=== PATIENT | male | born 1990 | race Hispanic/Latino ===

== ENCOUNTER 2017-12-07 20:28 | Emergency (ER) | payer MEDICAID, OTHER ==
[2017-12-07 21:52] VITALS: O2SAT 98
--- NOTE | 2017-12-07 22:12 | C.PDOC ---
History Of Present Illness 27yo male, presents to ED with complaints of feeling dizzy. He states 2 months ago, he was evaluated at [facility] in [place] for similar complaints and was diagnosed with hypertension, given prescriptions which he did not fill. Patient states he was dizzy earlier today and wants his blood pressure "checked out." He denies any chest pain, palpitation, headaches and states he is not currently dizzy. He has no other medical complaints. Time Seen by Provider: 12/07/17 21:59 Chief Complaint (Nursing): High Blood Pressure History Per: Patient History/Exam Limitations: no limitations Current Symptoms Are (Timing): Gone Associated Symptoms: Dizziness. denies: Chest Pain, Headache Past Medical History Reviewed: Historical Data, Nursing Documentation, Vital Signs Vital Signs: Last Vital Signs Temp 98.5 F 12/07/17 20:43 Pulse 66 12/07/17 21:44 Resp 16 12/07/17 21:44 BP 152/101 H 12/07/17 21:44 Pulse Ox 98 12/07/17 22:13 - Medical History PMH: No Chronic Diseases Surgical History: No Surg Hx Family History: States: Unknown Family Hx - Social History Hx Alcohol Use: Yes Hx Substance Use: No - Immunization History Hx Tetanus Toxoid Vaccination: No Hx Influenza Vaccination: No Hx Pneumococcal Vaccination: No Review Of Systems Except As Marked, All Systems Reviewed And Found Negative. Constitutional: Negative for: Fever, Chills Cardiovascular: Negative for: Chest Pain, Palpitations Respiratory: Negative for: Shortness of Breath Neurological: Positive for: Dizziness (now resolved) Physical Exam - Physical Exam Appears: Non-toxic, No Acute Distress Skin: Normal Color, Warm, Dry Head: Atraumatic, Normacephalic Eye(s): bilateral: Normal Inspection, PERRL Neck: Normal ROM, Supple Chest: Symmetrical, No Tenderness Cardiovascular: Rhythm Regular Respiratory: Normal Breath Sounds Gastrointestinal/Abdominal: Normal Exam, Soft, No Tenderness Extremity: Normal ROM Neurological/Psych: Oriented x3 ED Course And Treatment ECG: Interpreted By Me ECG Rhythm: Sinus Rhythm Interpretation Of ECG: LVH Rate From EC O2 Sat by Pulse Oximetry: 98 (RA) Pulse Ox Interpretation: Normal Progress Note: Patient is currently refusing any medical work up 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 He will follow up in the clinic as an out patient. Reevaluation Time: 22:29 Reassessment Condition: Improved Medical Decision Making Medical Decision Making: Impression: Dizziness in setting of recent diagnosis of hypertension Plan: -- Patient refusing labs and ER workup, and only wants his blood pressure to be checked. Patient given 0.1mg clonodine PO and will be discharged home with prescriptions and follow up instructions. Disposition Counseled Patient/Family Regarding: Studies Performed, Diagnosis, Need For Followup - Disposition Referrals: [facility] at [facility] [Outside] Disposition: HOME/ ROUTINE Disposition Time: 22:29 Condition: IMPROVED Prescriptions: Lisinopril [Zestril] 10 mg PO DAILY #30 tab Instructions: High Blood Pressure in Adults Forms: [employer] (Latvian) - Clinical Impression Clinical Impression: Hypertension - Scribe Statement The provider has reviewed the documentation as recorded by the Scribe (Janett Angelo) Provider Attestation: All medical record entries made by the Scribe were at my direction and personally dictated by me. I have reviewed the chart and agree that the record accurately reflects my personal performance of the history, physical exam, medical decision making, and the department course for this patient. I have also personally directed, reviewed, and agree with the discharge instructions and disposition.
[2017-12-07 23:01] VITALS: BP 176/100; PULSE 80; RESP 18; TEMP 98.1
--- NOTE | 2017-12-08 11:45 | CARD ---
APPROVED REPORT EKG Measurement Heart [id number] <Conclusion> Normal sinus rhythm Voltage criteria for left ventricular hypertrophy Abnormal ECG
== END 2017-12-07 23:03 | disposition home or self-care (01) ==
LOC: C.ER 20:28
DX: I10 Essential (primary) hypertension (principal); F17.210 Nicotine dependence, cigarettes, uncomplicated

== ENCOUNTER 2018-01-10 19:27 | Emergency (ER) | payer MEDICAID ==
[2018-01-10 19:44] VITALS: BP 176/105; PULSE 74; RESP 18; TEMP 98.9; O2SAT 99
--- NOTE | 2018-01-10 20:58 | C.PDOC ---
History Of Present Illness 27 year old male presents to the ER requesting an Rx for his HTN medications. Patient has a Hx of elevated blood pressure for the past few months. He was seen on 12/07/17 and given Rx for HTN medication, however, patient did not fill the Rx as he was incarcerated promptly following his visit, he returns now requesting another Rx. Denies chest pain, SOB, headache, weakness, visual c/o or dizziness. Time Seen by Provider: 01/10/18 20:11 Chief Complaint (Nursing): High Blood Pressure History Per: Patient History/Exam Limitations: no limitations Onset/Duration Of Symptoms: Days Current Symptoms Are (Timing): Still Present Associated Symptoms: denies: Chest Pain, Dyspnea, Dizziness, Blurred Vision, Focal Weakness, Headache Quality Of Symptoms: Asymptomatic Recent travel outside of the [place]: No Past Medical History Reviewed: Historical Data, Nursing Documentation, Vital Signs Vital Signs: Last Vital Signs Temp 98.9 F 01/10/18 19:40 Pulse 74 01/10/18 19:40 Resp 18 01/10/18 19:40 BP 176/105 H 01/10/18 21:04 Pulse Ox 99 01/10/18 22:07 - Medical History PMH: HTN Family History: States: Unknown Family Hx - Social History Hx Alcohol Use: Yes Hx Substance Use: No - Immunization History Hx Tetanus Toxoid Vaccination: No Hx Influenza Vaccination: No Hx Pneumococcal Vaccination: No Review Of Systems Constitutional: Negative for: Fever, Chills Cardiovascular: Negative for: Chest Pain Respiratory: Negative for: Shortness of Breath Neurological: Negative for: Headache, Dizziness Physical Exam - Physical Exam Appears: Non-toxic Skin: Normal Color, Warm, Dry Head: Atraumatic, Normacephalic Eye(s): bilateral: Normal Inspection Oral Mucosa: Moist Chest: Symmetrical, No Tenderness Cardiovascular: Rhythm Regular Respiratory: Normal Breath Sounds, No Rales, No Rhonchi, No Wheezing Neurological/Psych: Oriented x3, Normal Speech ED Course And Treatment O2 Sat by Pulse Oximetry: 99 (room air) Pulse Ox Interpretation: Normal Progress Note: Patient found to have elevated blood pressure in the ER, norvasc administered. Patient is resting comfortably in the ER in no distress or pain, vitals are stable, patient was educated on the risks of HTN and advised to follow up at the clinic for further management. Disposition Counseled Patient/Family Regarding: Diagnosis, Need For Followup, Rx Given - Disposition Referrals: Non [facility] Provider, [Primary Care Provider] - Disposition: HOME/ ROUTINE Disposition Time: 20:55 Condition: STABLE Additional Instructions: Please fill out prescriptions Please follow up in clinic REturn to ER if worse Prescriptions: amLODIPine [Norvasc] 5 mg PO DAILY #30 tab Instructions: High Blood Pressure (DC) Forms: [employer] (Kyrgyz) - Clinical Impression Clinical Impression: Elevated blood pressure reading - PA / RESIDENTIAL ADVISOR / Resident Statement MD/DO has reviewed & agrees with the documentation as recorded. - Scribe Statement The provider has reviewed the documentation as recorded by the Scribcristin Alejandre All medical record entries made by the Juany were at my direction and personally dictated by me. I have reviewed the chart and agree that the record accurately reflects my personal performance of the history, physical exam, medical decision making, and the department course for this patient. I have also personally directed, reviewed, and agree with the discharge instructions and disposition.
== END 2018-01-10 21:10 | disposition home or self-care (01) ==
LOC: C.ER 19:27 → SUPCPDRO 19:27 → C.ER 21:10
DX: I10 Essential (primary) hypertension (principal)

== ENCOUNTER 2018-08-15 10:15 | Emergency (ER) | payer MEDICAID ==
[2018-08-15 10:25] VITALS: BP 154/93; PULSE 82; RESP 20; TEMP 98.1; O2SAT 97
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
== END 2018-08-15 11:32 | disposition home or self-care (01) ==
LOC: C.ER 10:15
DX: M54.5 Low back pain (principal); I10 Essential (primary) hypertension

== ENCOUNTER 2018-10-10 14:30 | Emergency (ER) | payer MEDICAID ==
[2018-10-10] MEDS ORDERED: Sodium Chloride 0.9% 500 ML IV ONE (17:24)
--- NOTE | 2018-10-10 17:27 | C.PDOC ---
History Of Present Illness 28 y/o male presents to the ER complaining of vomiting which has been present since yesterday. Patient states that he was drinking ETOH 2 days ago. Patient denies having fever,chills, CP,SOB, abdominal pain, and diarrhea. Of note, patient has prescribed bp medications and he is non-compliant. Time Seen by Provider: 10/10/18 16:04 Chief Complaint (Nursing): GI Problem History Per: Patient History/Exam Limitations: no limitations Onset/Duration Of Symptoms: Days Current Symptoms Are (Timing): Still Present Severity: Moderate Past Medical History Reviewed: Historical Data, Nursing Documentation, Vital Signs Vital Signs: Last Vital Signs Temp 98 F 10/10/18 14:53 Pulse 93 H 10/10/18 14:53 Resp 16 10/10/18 14:53 BP 166/107 H 10/10/18 14:53 Pulse Ox 95 10/10/18 14:53 - Medical History PMH: HTN Surgical History: No Surg Hx Family History: States: No Known Family Hx - Social History Hx Alcohol Use: Yes Hx Substance Use: No - Immunization History Hx Tetanus Toxoid Vaccination: No Hx Influenza Vaccination: No Hx Pneumococcal Vaccination: No Review Of Systems Except As Marked, All Systems Reviewed And Found Negative. Constitutional: Negative for: Fever, Chills Cardiovascular: Negative for: Chest Pain Respiratory: Negative for: Shortness of Breath Gastrointestinal: Positive for: Vomiting. Negative for: Abdominal Pain Genitourinary: Negative for: Dysuria, Hematuria Physical Exam - Physical Exam Appears: Non-toxic, No Acute Distress Skin: Normal Color, Warm, Dry Head: Atraumatic, Normacephalic Eye(s): bilateral: Normal Inspection Nose: Normal Oral Mucosa: Moist Neck: Supple Chest: Symmetrical Cardiovascular: Rhythm Regular Respiratory: Normal Breath Sounds, No Rales, No Rhonchi, No Wheezing Gastrointestinal/Abdominal: Normal Exam, Soft, No Tenderness, No Guarding, No Rebound Neurological/Psych: Oriented x3, Normal Speech ED Course And Treatment O2 Sat by Pulse Oximetry: 95 (RA) Pulse Ox Interpretation: Normal Medical Decision Making Medical Decision Making: Plan: --Norvasc PO --IV Fluids Updates: Pt re-eval. Pt states feeling much better. Denies any abd pain, n/v, or any other complaints at this time. Abd re-examined: Soft, NTTP, benign. Pt eating meal. Understands and agrees to immediately return to ER if increasing pain, vomiting, fevers, or any other concerning, worsening, new or continued sxs. Otherwise, states will f/u with PCP in 1-2 days. Patient is aware that early disease may be missed by CT and to return in [facility] for re-evaluation if any continued, worsening, new or continued symptoms. Patient states feeling better and would like to go home. Patient is very well appearing and non-toxic. Vital signs are stable. I discussed the diagnosis and treatment. Written discharge instructions were provided to patient. Additional verbal instructions were given and discussed with patient. We discussed the importance of follow up with PCP/consultants. I also reiterated reasons to immediately return to the ER including: worsening in current symptoms and/or new, continued, or concerning symptoms. Pt understood and agreed. Disposition Counseled Patient/Family Regarding: Diagnosis, Need For Followup - Disposition Referrals: [facility] [Outside] [facility] [Outside] Aaron Cadena MD [Staff Provider] - Disposition: HOME/ ROUTINE Disposition Time: 17:26 Condition: STABLE Additional Instructions: FABRIZIO GROVE, thank you for letting us take care of you today. Your provider was Carie Graham MD and you were treated for VOMITING. The emergency medical care you received today was directed at your acute symptoms. If you were prescribed any medication, please fill it and take as directed. It may take several days for your symptoms to resolve. Return to the Emergency Department if your symptoms worsen, do not improve, or if you have any other problems. Please contact your doctor or call one of the physicians/clinics you have been referred to that are listed on the Patient Visit Information form that is included in your discharge packet. Bring any paperwork you were given at discharge with you along with any medications you are taking to your follow up visit. Our treatment cannot replace ongoing medical care by a primary care provider outside of the emergency department. Thank you for allowing the [facility] team to be part of your care today. Instructions: Clear Liquid Diet, High Blood Pressure (DC), Nausea and Vomiting, Adult (DC), Gastritis (DC) Forms: [employer] (Japanese), General Discharge Instructions - POA Present On Arrival: None - Clinical Impression Clinical Impression: Vomiting, Hypertension, Noncompliance with medications, Gastritis - Scribe Statement The provider has reviewed the documentation as recorded by the Angelinaibe Radha Garcia Provider Attestation: All medical record entries made by the Scribe were at my direction and personally dictated by me. I have reviewed the chart and agree that the record accurately reflects my personal performance of the history, physical exam, medical decision making, and the department course for this patient. I have also personally directed, reviewed, and agree with the discharge instructions and disposition.
[2018-10-10 18:19] VITALS: BP 156/102; PULSE 84; RESP 18; TEMP 98.7
[2018-10-11 10:38] VITALS: O2SAT 95
== END 2018-10-10 19:20 | disposition home or self-care (01) ==
LOC: C.ER 14:30
DX: K29.70 Gastritis, unspecified, without bleeding (principal); I10 Essential (primary) hypertension; R11.10 Vomiting, unspecified; Z91.14 Patient's other noncompliance with medication regimen
CPT/HCPCS: 99284; J7040

== ENCOUNTER 2018-11-07 17:22 | Emergency (ER) | payer MEDICAID ==
[2018-11-07 17:40] VITALS: BMI 21.7
[2018-11-07 17:44] VITALS: RESP 18; TEMP 98.7
--- NOTE | 2018-11-07 18:08 | C.PDOC ---
History Of Present Illness 28 year old male presents to ED requesting refill for his hypertension medication. Patient states that he ran out and did not refill his hypertension medication for the past 3 months. Patient would like to restart his hypertension medication. Patient denies recent illness, headache, dizziness, chest pain, SOB, nausea, vomiting, and abdominal pain. Time Seen by Provider: 11/07/18 17:55 Chief Complaint (Nursing): Med Refill History Per: Patient History/Exam Limitations: no limitations Onset/Duration Of Symptoms: Other (requesting refill) Past Medical History Reviewed: Historical Data, Nursing Documentation, Vital Signs Vital Signs: Last Vital Signs Temp 98.7 F 11/07/18 17:44 Pulse 72 11/07/18 17:44 Resp 18 11/07/18 17:44 BP 175/96 H 11/07/18 17:44 Pulse Ox 99 11/07/18 17:44 - Medical History PMH: HTN Surgical History: No Surg Hx Family History: States: Unknown Family Hx - Social History Hx Alcohol Use: Yes Hx Substance Use: No - Immunization History Hx Tetanus Toxoid Vaccination: No Hx Influenza Vaccination: No Hx Pneumococcal Vaccination: No Review Of Systems Constitutional: Negative for: Fever, Chills, Weakness Cardiovascular: Negative for: Chest Pain Respiratory: Negative for: Shortness of Breath Gastrointestinal: Negative for: Nausea, Vomiting, Abdominal Pain Neurological: Negative for: Weakness, Numbness, Headache, Dizziness Physical Exam - Physical Exam Appears: Well, Non-toxic, No Acute Distress Skin: Normal Color, Warm, Dry Head: Atraumatic, Normacephalic Eye(s): bilateral: Normal Inspection, PERRL Ear(s): Bilateral: Normal Nose: No Discharge Oral Mucosa: Moist Tongue: Normal Appearing Lips: Normal Appearing Throat: No Erythema, No Exudate Neck: Normal ROM, Supple Chest: Symmetrical, No Deformity Cardiovascular: Rhythm Regular, No Murmur Respiratory: Normal Breath Sounds, No Accessory Muscle Use, No Rales, No Rhonchi, No Wheezing Gastrointestinal/Abdominal: Soft, No Tenderness Extremity: No Pedal Edema, No Calf Tenderness, No Swelling Extremity: Bilateral: Atraumatic Neurological/Psych: Oriented x3, Normal Speech, Normal Cognition, Normal Motor, Normal Sensation Gait: Steady ED Course And Treatment O2 Sat by Pulse Oximetry: 99 (in RA) Medical Decision Making Medical Decision Making: Impression: 28 year old male presents to ED requesting refill for his hyperte nsion medication. Plan: Patient given Norvasc PO and BP lowered to 160/98 Advised patient on strict compliance on meds and lifestyle changes patient to follow up in clinic Discussed plan with patient who expresses understanding. All questions answered and there is agreement with the plan to discharge home with instructions. Patient stable for discharge. Return if symptoms persist or worsen. Disposition Counseled Patient/Family Regarding: Diagnosis, Need For Followup, Rx Given, Smoking Cessation - Disposition Referrals: [facility] [Outside] Disposition: HOME/ ROUTINE Disposition Time: 19:00 Condition: IMPROVED Additional Instructions: FABRIZIO GROVE, thank you for letting us take care of you today. Continue Norvasc daily for high blood pressure Please review the discharge handout instructions given to today regarding lifestyle changes and diet Follow up in Clinic in 1-2 days Return to ED if symptoms worsen Prescriptions: amLODIPine [Norvasc] 5 mg PO DAILY #30 tab Instructions: High Blood Pressure in Adults, DASH Diet, Low Salt Diet, Controlling Your Blood Pressure Through Lifestyle Forms: [employer] (Russian) - Clinical Impression Clinical Impression: Noncompliance with medications, HTN (hypertension) - PA / SPECIAL CLASS WELDER / Resident Statement MD/DO has reviewed & agrees with the documentation as recorded. (Jannie Aguirre) - Scribe Statement The provider has reviewed the documentation as recorded by the Scribe (Jannie Aguirre) All medical record entries made by the Scribe were at my direction and personally dictated by me. I have reviewed the chart and agree that the record accurately reflects my personal performance of the history, physical exam, medical decision making, and the department course for this patient. I have also personally directed, reviewed, and agree with the discharge instructions and disposition.
[2018-11-07 18:44] VITALS: BP 160/98; PULSE 73
[2018-11-07 19:06] VITALS: O2SAT 99
== END 2018-11-07 19:07 | disposition home or self-care (01) ==
LOC: C.ER 17:22
DX: I10 Essential (primary) hypertension (principal); Z91.14 Patient's other noncompliance with medication regimen

== ENCOUNTER 2018-12-14 13:19 | Emergency (ER) | payer SELFPAY ==
[2018-12-14 13:19] VITALS: BMI 21.7
[2018-12-14 13:38] VITALS: BP 171/107; PULSE 86; RESP 16; TEMP 99.3; O2SAT 100
--- NOTE | 2018-12-14 13:45 | C.PDOC ---
History Of Present Illness 28 year old male presents to the ED with complaint of itching to the left buttock for the past 2 days. Patient is s/p a spontaneous abscess drainage that occurred 2 days ago. Patient had a left buttock abscess for 1 week. Patient states that he now feels better, but still has residual itch to the area. He states that there has been no improvement with exfoliation. Patient denies redness, swelling, discharge, numbness, or weakness to the afflicted area. CO ITCH L BUTTOCK X 2 DAYS. S/P SPONTANEOUS ABSCESS DRAINAGE 2 DAYS AGO, HAD L BUTTOCK ABSCESS X 1 WEEK. NOW FEELS BETTER, STILL W RESIDUAL ITCH TO AREA. NO REDNESS, SWELL, DC, OTHER ASSOC SX. NO IMPROVE W EXFOLIATION. EXAM NONTOXIC SKIN L BUTTOCK EXFOL SKIN; PUNCTATE SCAB WOUND NO FOCAL FLUCTUANCE, ERYTHEMA, DC, TEND. MIN LOCAL INDURATION. REMAINDER NEG MDM S/P SPONT DRAINAGE ABSCESS NOW W RESIDUAL SKIN IRRITATION. NO SIGNS INFXN. TOPICAL STEROID, CALAMINE, PMD FU Time Seen by Provider: 12/14/18 13:36 Chief Complaint (Nursing): Abnormal Skin Integrity History Per: Patient History/Exam Limitations: no limitations Onset/Duration Of Symptoms: Days (2) Current Symptoms Are (Timing): Still Present Quality Of Symptoms: Itching. denies: Painful, Swollen, Draining Past Medical History Reviewed: Historical Data, Nursing Documentation, Vital Signs Vital Signs: Last Vital Signs Temp 99.3 F 12/14/18 13:28 Pulse 86 12/14/18 13:28 Resp 16 12/14/18 13:28 BP 171/107 H 12/14/18 13:28 Pulse Ox 100 12/14/18 13:28 Primary Care Provider: FAMILY PROVIDER,NO - Medical History PMH: HTN Surgical History: No Surg Hx Family History: States: Unknown Family Hx - Social History Hx Alcohol Use: Yes Hx Substance Use: No - Immunization History Hx Tetanus Toxoid Vaccination: No Hx Influenza Vaccination: No Hx Pneumococcal Vaccination: No Review Of Systems Except As Marked, All Systems Reviewed And Found Negative. Skin: Positive for: Other (itching to the left buttock ) Physical Exam - Physical Exam Appears: Non-toxic, No Acute Distress Skin: Other (left buttock exfoliated, punctate scab, no focal fluctuance, no erythema, discharge, or tenderness, minimal localized induration) Head: Atraumatic, Normacephalic Neck: Normal ROM, Supple Chest: Symmetrical, No Deformity Cardiovascular: Rhythm Regular, No Murmur Respiratory: No Accessory Muscle Use, No Rales, No Rhonchi, No Wheezing Gastrointestinal/Abdominal: Soft, No Tenderness Extremity: Capillary Refill (<2 seconds) Extremity: Bilateral: Atraumatic, Normal Color And Temperature, Normal ROM Pulses: Left Radial: Normal, Right Radial: Normal Neurological/Psych: Oriented x3, Normal Speech, Normal Cognition ED Course And Treatment O2 Sat by Pulse Oximetry: 100 (in RA) Pulse Ox Interpretation: Normal Medical Decision Making Medical Decision Making: S/p spontaneous drainage of abscess now with residual skin irritation. Shows no signs of infection. Patient given a topical steroid, calamine lotion, and PMD follow up. Disposition Counseled Patient/Family Regarding: Diagnosis, Need For Followup, Rx Given - Disposition Referrals: [facility] [Outside] [facility] [Outside] [facility] [Other] Disposition: HOME/ ROUTINE Disposition Time: 13:42 Condition: IMPROVED Prescriptions: Hydrocortisone 0.5% CREAM [Cortizone 0.5% CREAM] 30 applic TOP BID #1 tube Instructions: Itchy Skin Forms: [facility] (Turkmen), Work Excuse - Clinical Impression Clinical Impression: Skin irritation - Scribe Statement The provider has reviewed the documentation as recorded by the Scribe (Jannie Aguirre) All medical record entries made by the Scribe were at my direction and personally dictated by me. I have reviewed the chart and agree that the record accurately reflects my personal performance of the history, physical exam, m edical decision making, and the department course for this patient. I have also personally directed, reviewed, and agree with the discharge instructions and disposition.
== END 2018-12-14 13:52 | disposition home or self-care (01) ==
LOC: C.ER 13:19
DX: L98.9 Disorder of the skin and subcutaneous tissue, unspecified (principal); I10 Essential (primary) hypertension